=== PATIENT | female | born 1960 | race Caucasian/White ===

== ENCOUNTER → 2020-03-10 10:39 | Outpatient (CLI) | payer BC, SELFPAY ==
--- NOTE | ~2020-03-10 | MM_ITS ---
EXAMINATION: MM screening [facility] BI w santino HISTORY: Screening TECHNIQUE: Craniocaudal and mediolateral oblique 3-D tomosynthesis images were obtained and synthetic 2-D images were generated. CAD analysis was submitted and interpreted. COMPARISON: Comparison to multiple prior studies sequentially, with oldest reviewed study dated 11/26. BREAST PARENCHYMAL COMPOSITION: There are scattered areas of fibroglandular density. FINDINGS: There is no evidence of suspicious mass, calcification, or architectural distortion to sugg est malignancy in either breast. There has been no suspicious interval change. IMPRESSION: 1. No mammographic evidence of malignancy. 2. Recommend routine screening mammography in one year. BI-RADS Category 1: Negative Reviewed, dictated and finalized at location A. RNET SALES REPRESENTATIVE
== END ==
PROVIDERS: PCP Internal Medicine Infectious Disease; Visit Provider Obstetrics & Gynecology
DX: Z12.31 Encounter for screening mammogram for malignant neoplasm of breast (principal)
CPT/HCPCS: 77063; 77067

== ENCOUNTER → 2021-03-04 10:21 | Outpatient (CLI) | payer BC, SELFPAY ==
--- NOTE | ~2021-03-04 | DEXA_ITS ---
Bone Density Report Name: SHANNAN SCHROEDER Age: 60 Sex: Female Ethnicity: White Date of : 1960 Indication: postmenopausal; screening for osteoporosis; height loss; Referring Provider: JADE FALLON Study: Bone densitometry was performed. Exam Date: March 04, 2021 Accession number: [id number] Bone Density: Region BMD T-score Z-score Classification AP Spine (L1-L4) 0.883 -1.5 -0.1 Osteopenia World Health Organization criteria for BMD impression classify patients as: Normal (T-score at or above -1.0), Osteopenia (T-score between -1.0 and -2.5), or Osteoporosis (T-score at or below -2.5). Previous Exams: Region Exam Age BMD T-score BMD Change BMD Change Date g/cm2 vs Baseline vs Previous AP Spine(L1-L4) 03/04/2021 60 0.883 -1.5 -0.055* -0.055* 12/05/2018 58 0.939 -1.0 *Denotes significance at 95% confidence level, LSC for AP Spine = 0.022 g/cm2 Clinical Information Provided by Patient: Has used the following medications: Vitamin D, MTV Patient maximum height was 65.5 Menopause Age: 45 No regular weight bearing exercise Drinks caffeinated beverages Onset of menses at age 11 Number of children 1 Missed period for more than 6 months in a row Impression: The patient has low bone mass, based on the Total Spine T-score. The BMD for the AP Spine(L1-L4) decreased, changing by -0.055 since the last DXA exam. Discussion: BONE DENSITY IS LOW AT ONE OR MORE SKELETAL SITES. This patient's lowest T-score is low at one or more skeletal sites. It meets the World Health Organization's (WHO) criteria for ?low bone mass? (T-score between -1.0 and -2.5). The patient's 10-year risk of fracture as calculated by FRAX is less than the threshold where pharmacological therapy is recommended by the National Osteoporosis Foundation (NOF). However, all treatment decisions require clinical judgment and consideration of individual patient factors, including patient preferences, comorbidities, previous drug use, risk factors not captured in the FRAX model (e.g., frailty, falls, vitamin D deficiency, increased bone turnover, interval significant decline in bone density) and possible under or overestimation of fracture risk by FRAX. The patient should follow a healthful lifestyle (good nutrition with adequate calcium and vitamin D, and appropriate weight-bearing exercise). Follow-Up: Consider repeating this study in 2 years to reassess this patient's status, or sooner if there is some new clinical indication. Reported by: [facility] on 03/04/2021 10:50:00 AM. Reviewed, dictated and finalized at location A. [facility]ITAL[facility]
== END ==
PROVIDERS: PCP Internal Medicine Infectious Disease
DX: Z13.820 Encounter for screening for osteoporosis (principal); E11.65 Type 2 diabetes mellitus with hyperglycemia; M81.8 Other osteoporosis without current pathological fracture; E22.0 Acromegaly and pituitary gigantism; Z78.0 Asymptomatic menopausal state; E34.9 Endocrine disorder, unspecified
CPT/HCPCS: 77080

== ENCOUNTER → 2021-03-23 13:21 | Outpatient (CLI) | payer BC, SELFPAY ==
--- NOTE | ~2021-03-23 | MM_ITS ---
EXAMINATION: MM screening [facility] BI w santino HISTORY: Screening mammogram TECHNIQUE: Craniocaudal and mediolateral oblique 3-D tomosynthesis images were obtained and synthetic 2-D images were generated. CAD analysis was submitted and interpreted. COMPARISON: 03/10/2020, 01/28/2019, 01/24/2018 BREAST PARENCHYMAL COMPOSITION: There are scattered areas of fibroglandular density. FINDINGS: There is no evidence of suspicious mass, calcification, or architectural distortion to sugg est malignancy in either breast. There has been no suspicious interval change. IMPRESSION: 1. No mammographic evidence of malignancy. 2. Recommend routine screening mammography in one year. BI-RADS Category 1: Negative Reviewed, dictated and finalized at location A. AGRAPH OPERATOR
== END ==
PROVIDERS: PCP Internal Medicine Infectious Disease; Visit Provider Obstetrics & Gynecology
DX: Z12.31 Encounter for screening mammogram for malignant neoplasm of breast (principal)
CPT/HCPCS: 77063; 77067

== ENCOUNTER → 2021-11-16 11:04 | Outpatient (CLI) | payer OTHER, SELFPAY ==
--- NOTE | ~2021-11-16 | CT_ITS ---
EXAMINATION: CT abdomen pelvis wo/w con DATE: 11/16/2021 11:52 INDICATION: Benign neoplasm of left adrenal gland. TECHNIQUE: Computed tomography (CT) of the abdomen and pelvis was performed without and with 100 mL O mnipaque 350 intravenous contrast. Automated exposure control and iterative reconstruction technique were employed. The dose-length product was 1782.89 mGy-cm. COMPARISON: CT abdomen 12/05/2018 FINDINGS: The visualized portions of the lung bases demonstrate mild atelectasis. There are small greyson ateral posterior diaphragmatic hernias containing fat. The heart size is normal. No pericardial effus ion. There is mild intrahepatic duct dilatation. The common duct is dilated to 20 mm. The spleen is n ormal. There are changes of cholecystectomy. The pancreas and right adrenal gland are normal. There i s a 2.5 x 1.2 cm mass in left adrenal gland that measures low attenuation on the noncontrast CT, cons istent with an adenoma. There is cortical thinning of the kidneys. There is a 9 mm cyst in left kidne y. There is no urolithiasis. There are no dilated loops of bowel. The appendix is normal. There are n o pathologically enlarged lymph nodes. There is no free intraperitoneal fluid. 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 There is severe thoracic spondylosis and moderate lumbar spondylosis. IMPRESSION: 1. 2.5 cm left adrenal adenoma, stable from 12/05/2018. 2. Intrahepatic and extrahepatic biliary duct dilatation status post cholecystectomy, little changed from 12/05/2018. Correlate with liver function tests to determine if this finding is clinically signi ficant. Reviewed, dictated and finalized at location A. IMPRESSION: 1. 2.5 cm left adrenal adenoma, stable from 12/05/2018. 2. Intrahepatic and extrahepatic biliary duct dilatation status post cholecyste ctomy, little changed from 12/05/2018. Correlate with liver function tests to d etermine if this finding is clinically significant.
[2021-11-16 11:26] LABS: Estimated Glomerular Filt Rate 42
== END ==
PROVIDERS: PCP Internal Medicine Infectious Disease
DX: D35.02 Benign neoplasm of left adrenal gland (principal); Z90.49 Acquired absence of other specified parts of digestive tract
CPT/HCPCS: 74178; Q9967

== ENCOUNTER 2023-11-28 12:35 | Outpatient (CLI) | payer OTHER, SELFPAY ==
--- NOTE | ~2023-11-28 | XR_ITS ---
XR elbow LT min 3V Ordering provider: Ricardo Romero MD History: . M25.522 - Pain in left elbow, NKI . Comparison: None. FINDINGS: BONES: No acute fracture or dislocation. JOINT SPACES: Normal. SOFT TISSUES: Normal. No definite joint effusion. IMPRESSION: No acute osseous abnormality left elbow. Reviewed, dictated and finalized at location A.
--- NOTE | ~2023-11-28 | XR_ITS ---
XR elbow RT min 3V Ordering provider: Ricardo Romero MD History: . M25.521 - Pain in right elbow, NKI . Comparison: None. FINDINGS: BONES: Small bony fragment seen in the area of the lateral condyle of the humerus which may be nonuni radha apophysis versus acute or old chip fracture. Clinical correlation advised for tenderness in the a jonas. Otherwise, No acute fracture or dislocation. JOINT SPACES: Normal. SOFT TISSUES: Unremarkable. No definite joint effusion. IMPRESSION: Small bony fragment in the area of the lateral condyle of the humerus may be a chip fracture or nonun ited apophysis. Clinical evaluation advised. Otherwise, No acute osseous abnormality of the right elb ow. Reviewed, dictated and finalized at location A. IMPRESSION: Small bony fragment in the area of the lateral condyle of the humerus may be a chip fracture or nonunited apophysis. Clinical evaluation advised. Otherwise, N o acute osseous abnormality of the right elbow.
== END 2023-11-28 12:36 | disposition home or self-care (01) ==
PROVIDERS: PCP Internal Medicine Infectious Disease; Visit Provider Orthopaedic Surgery
DX: M25.521 Pain in right elbow (principal); M25.522 Pain in left elbow
CPT/HCPCS: 73080